=== PATIENT | male | born 1960 | race Caucasian/White ===

== ENCOUNTER → 2016-10-08 | Outpatient (CLI) | payer BC, OTHER ==
--- NOTE | 2016-10-08 16:08 | CR ---
EXAMINATION: Two-view chest (PA and Lateral views). HISTORY: Cough. FINDINGS: The trachea is midline. The cardiomediastinal silhouette is within normal limits. No pulmonary infil trates, effusions or pneumothorax. Old right-sided rib fractures noted. IMPRESSION: No acute cardiopulmonary process.
== END | disposition home or self-care (01) ==
LOC: MW.CHFP 15:23
PROVIDERS: ATTEND Nurse Practitioner Family
DX: R05 Cough (principal)
CPT/HCPCS: 71020; 71020-26

== ENCOUNTER 2019-01-21 16:33 | Emergency (ER) | payer BC, OTHER ==
--- NOTE | 2019-01-21 17:38 | EDM.PDOC ---
ED HPI GENERAL MEDICAL PROBLEM - General Chief Complaint: Skin Complaint Stated Complaint: CELLULITIS LEFT LEG Time Seen by Provider: 01/21/19 17:38 Source of Information: Reports: Patient - History of Present Illness INITIAL COMMENTS - FREE TEXT/NARRATIVE: HISTORY AND PHYSICAL: History of present illness: [Patient presents with left lower extremity cellulitis which began this morning palms sized on the anterior melendez, he has a history of cellulitis he states he is a prediabetic on metformin his refused lab today he does not check his blood glucose is only agreeable to treatment with oral antibiotic No fever nausea vomiting chills sweats ] Review of systems: As per history of present illness and below otherwise all systems reviewed and negative. Past medical history: As per history of present illness and as reviewed below otherwise noncontributory. Surgical history: As per history of present illness and as reviewed below otherwise noncontributory. Social history: No reported history of drug or alcohol abuse. Family history: As per history of present illness and as reviewed below otherwise noncontributory. Physical exam: HEENT: Atraumatic, normocephalic, pupils reactive, negative for conjunctival pallor or scleral icterus, mucous membranes moist, throat clear, neck supple, nontender, trachea midline. Lungs: Clear to auscultation, breath sounds equal bilaterally, chest nontender. Heart: S1S2, regular, negative for clicks, rubs, or JVD. Abdomen: Soft, nondistended, nontender. Negative for masses or hepatosplenomegaly. Negative for costovertebral tenderness. Pelvis: Stable nontender. Genitourinary: Deferred. Rectal: Deferred. Extremities: Atraumatic, negative for cords or calf pain. Neurovascular unremarkable. Neuro: Awake, alert, oriented. Cranial nerves II through XII unremarkable. Cerebellum unremarkable. Motor and sensory unremarkable throughout. Exam nonfocal. Skin as per history of present illness otherwise unremarkable Diagnostics: [Patient refused lab ] Therapeutics: [Bactrim double strength #20 no refill Patient advised to return if symptoms persist or worsen despite treatment ] Impression: [ left lower extremity cellulitis Chronic history of baseline] Definitive disposition and diagnosis as appropriate pending reevaluation and review of above. Left Lower Leg Pain Score (Numeric/FACES): 5 - Related Data Allergies Allergy/AdvReac Type Severity Reaction Status Date / Time No Known Allergies Allergy Verified 01/21/19 16:49 Home Meds: Home Meds Budesonide/Formoterol [Symbicort 160-4.5 MCG] 1 - 2 puff INH ASDIRECTED [History] Furosemide 40 mg PO DAILY 01/21/19 [History] atorvaSTATin Calcium [Atorvastatin Calcium] 40 mg PO DAILY 01/21/19 [History] metFORMIN HCl [Metformin HCl] 500 mg PO BID 01/21/19 [History] Past Medical History - Past Health History Medical/Surgical History: Denies Medical/Surgical History Cardiovascular History: Reports: High Cholesterol, Other (See Below) Other Cardiovascular History: edema Respiratory History: Reports: COPD Endocrine/Metabolic History: Reports: Diabetes, Type II - Infectious Disease History Infectious Disease History: Reports: Chicken Pox, Measles, Mumps Social & Family History - Family History Family Medical History: Noncontributory - Tobacco Use Smoking Status *Q: Current Every Day Smoker Years of Tobacco use: 40 Packs/Tins Daily: 1 - Recreational Drug Use Recreational Drug Use: No ED ROS GENERAL - Review of Systems Review Of Systems: See Below ED EXAM, SKIN/RASH Exam: See Below Course - Vital Signs Last Recorded V/S: Last Vital Signs Temp 98.7 F 01/21/19 16:48 Pulse 96 01/21/19 16:48 Resp 18 01/21/19 16:48 BP 143/86 H 01/21/19 16:48 Pulse Ox 93 L 01/21/19 16:48 Departure - Departure Time of Disposition: 17:41 Disposition: Home, Self-Care 01 Condition: Good Clinical Impression: Cellulitis - Discharge Information Referrals: PCP,None [Primary Care Provider] - Forms: ED Department Discharge Additional Instructions: Medication as prescribed Return if symptoms persist or worsen despite treatment Follow-up with primary care in 2 weeks as scheduled The following information is given to patients seen in the emergency department who are being discharged to home. This information is to outline your options for follow-up care. We provide all patients seen in our emergency department with a follow-up referral. The need for follow-up, as well as the timing and circumstances, are variable depending upon the specifics of your emergency department visit. If you don't have a primary care physician on staff, we will provide you with a referral. We always advise you to contact your personal physician following an emergency department visit to inform them of the circumstance of the visit and for follow-up with them and/or the need for any referrals to a consulting specialist. The emergency department will also refer you to a specialist when appropriate. This referral assures that you have the opportunity for follow-up care with a specialist. All of these measure are taken in an effort to provide you with optimal care, which includes your follow-up. Under all circumstances we always encourage you to contact your private physician who remains a resource for coordinating your care. When calling for follow-up care, please make the office aware that this follow-up is from your recent emergency room visit. If for any reason you are refused follow-up, please contact the [facility] emergency department at and asked to speak to the emergency department charge nurse.
== END 2019-01-21 17:49 | disposition home or self-care (01) ==
LOC: MW.ED 16:33
DX: L03.116 Cellulitis of left lower limb (principal); E11.9 Type 2 diabetes mellitus without complications; J44.9 Chronic obstructive pulmonary disease, unspecified; E78.00 Pure hypercholesterolemia, unspecified; F17.210 Nicotine dependence, cigarettes, uncomplicated; Z79.84 Long term (current) use of oral hypoglycemic drugs; Z79.899 Other long term (current) drug therapy
CPT/HCPCS: 99283

== ENCOUNTER 2020-06-17 06:32 | Day surgery (SDC) | payer BC, OTHER ==
[~2020-06-17 06:32] MED LIST: Lactated Ringers 1,000 ML IV SCH
[2020-06-17] MEDS ORDERED: Propofol 200 MG/20 ML SDV ONE (07:07)
[2020-06-17] MEDS ORDERED: Lidocaine 2% 5 ML SDV ONE (07:07)
[2020-06-17] MEDS ORDERED: Midazolam 1 MG/ML 2 ML SDV ONE (07:07)
[2020-06-17] MEDS ORDERED: fentaNYL 100 MCG/2 ML SDV ONE (07:07)
--- NOTE | 2020-06-17 07:22 | PCM.PREANE ---
Preanesthetic Assessment - Anesthesia/Transfusion/Family Hx Anesthesia History: Prior Anesthesia Without Reaction Family History of Anesthesia Reaction: No Transfusion History: No Prior Transfusion(s) Intubation History: Unknown - Review of Systems General: No Symptoms Pulmonary: No Symptoms Cardiovascular: No Symptoms Gastrointestinal: No Symptoms, Other (screening, last one 10 years ago was normal) Neurological: No Symptoms Other: Reports: None - Physical Assessment Vital Signs: Last Vital Signs Temp 36.5 C 06/17/20 07:09 Pulse 65 06/17/20 07:09 Resp 18 06/17/20 07:09 BP 139/75 06/17/20 07:09 Pulse Ox 93 L 06/17/20 07:09 Height: 5 ft 8 in Weight: 144.242 kg ASA Class: 3 Mental Status: Alert & Oriented x3 Airway Class: Mallampati = 2 Dentition: Reports: Normal Dentition Thyro-Mental Finger Breadths: 2 Mouth Opening Finger Breadths: 3 ROM/Head Extension: Limited/Partial Lungs: Clear to Auscultation, Normal Respiratory Effort Cardiovascular: Regular Rate, Regular Rhythm - Allergies Allergies/Adverse Reactions: Allergies Allergy/AdvReac Type Severity Reaction Status Date / Time No Known Allergies Allergy Verified 06/17/20 07:16 - Blood Blood Available: No - Anesthesia Plan Pre-Op Medication Ordered: None - Acknowledgements Anesthesia Type Planned: MAC Pt an Appropriate Candidate for the Planned Anesthesia: Yes Alternatives and Risks of Anesthesia Discussed w Pt/Guardian: Yes Pt/Guardian Understands and Agrees with Anesthesia Plan: Yes PreAnesthesia Questionnaire - Past Health History Medical/Surgical History: Denies Medical/Surgical History HEENT History: Reports: None Cardiovascular History: Reports: High Cholesterol, Other (See Below) Other Cardiovascular History: edema Respiratory History: Reports: COPD (moderate), Sleep Apnea, SOB Other Respiratory History: uses CPAP Gastrointestinal History: Reports: None Genitourinary History: Reports: BPH Musculoskeletal History: Reports: Arthritis Neurological History: Reports: None Psychiatric History: Reports: None Endocrine/Metabolic History: Reports: Diabetes, Type II (glucose level 103 this morning), Obesity/BMI 30+ (BMI 48.8) Hematologic History: Reports: None Immunologic History: Reports: None Oncologic (Cancer) History: Reports: None Dermatologic History: Reports: None - Infectious Disease History Infectious Disease History: Reports: Chicken Pox, Measles, Mumps - Past Surgical History Head Surgeries/Procedures: Reports: None HEENT Surgical History: Reports: None Cardiovascular Surgical History: Reports: None Respiratory Surgical History: Reports: None GI Surgical History: Reports: Appendectomy, Colonoscopy, Hernia Repair/Other Male Surgical History: Reports: None Endocrine Surgical History: Reports: None Neurological Surgical History: Reports: None Musculoskeletal Surgical History: Reports: None Oncologic Surgical History: Reports: None Dermatological Surgical History: Reports: None - SUBSTANCE USE Tobacco Use Status *Q: Current Every Day Tobacco User (down to 1/2 ppd) Tobacco Use Within Last Twelve Months: Cigarettes - HOME MEDS Home Medications: Home Meds Budesonide/Formoterol [Symbicort 160-4.5 MCG] 1 puff INH BID 01/21/19 [History] Furosemide 20 mg PO DAILY 01/21/19 [History] atorvaSTATin Calcium [Atorvastatin Calcium] 40 mg PO BEDTIME 01/21/19 [History] metFORMIN HCl [Metformin HCl] 500 mg PO BID 01/21/19 [History] Meloxicam 15 mg PO DAILY PRN 06/13/20 [History] Tamsulosin HCl [Flomax] 0.4 mg PO BEDTIME 06/13/20 [History] buPROPion HCL [Bupropion HCl Sr] 150 mg PO BID 06/13/20 [History] - CURRENT (IN HOUSE) MEDS Current Meds: Current Medications Lactated Ringer's (Ringers, Lactated) 1,000 mls @ 125 mls/hr IV ASDIRECTED [facility] Last Admin: 06/17/20 07:09 Dose: 125 mls/hr Documented by: Discontinued Medications Fentanyl (Sublimaze) Confirm Administered Dose 100 mcg .ROUTE .STK-MED ONE Stop: 06/17/20 07:08 Lidocaine (Xylocaine-Mpf 2%) Confirm Administered Dose 5 ml .ROUTE .STK-MED ONE Stop: 06/17/20 07:08 Midazolam HCl (Versed 1 Mg/Ml) Confirm Administered Dose 2 mg .ROUTE .STK-MED ONE Stop: 06/17/20 07:08 Propofol (Diprivan 20 Ml) Confirm Administered Dose 400 mg .ROUTE .STK-MED ONE Stop: 06/17/20 07:08
--- NOTE | 2020-06-17 08:21 | PCM.OPNOTE ---
- General Post-Op/Procedure Note Date of Surgery/Procedure: 06/17/20 Operative Procedure(s): Colonoscopy with cold descending colon polypectomy Pre Op Diagnosis: Desire for colorectal cancer screening Post-Op Diagnosis: Descending colon polyp. Sigmoid diverticulosis. Anesthesia Technique: MAC (ASA III) Primary Surgeon: Pilo Prieto Condition: Good Free Text/Narrative:: DICTATION [id number] CPT CODE 20333
[2020-06-17] MEDS ORDERED: Lactated Ringers 1,000 ML IV SCH (08:30)
--- NOTE | 2020-06-17 08:43 | PCM.POSTAN ---
POST ANESTHESIA ASSESSMENT - MENTAL STATUS Mental Status: Alert, Oriented - VITAL SIGNS Vital Signs: Last Vital Signs Temp 36.8 C 06/17/20 08:20 Pulse 58 L 06/17/20 08:39 Resp 17 06/17/20 08:39 BP 129/63 06/17/20 08:39 Pulse Ox 93 L 06/17/20 08:39 - RESPIRATORY Respiratory Status: Respiratory Rate WNL, Airway Patent, O2 Saturation Stable - CARDIOVASCULAR CV Status: Pulse Rate WNL, Blood Pressure Stable - GASTROINTESTINAL GI Status: No Symptoms - PAIN Pain Score: 0 - POST OP HYDRATION Hydration Status: Adequate & Stable - OBSERVATIONS Free Text/Narrative:: No anesthesia problems
--- NOTE | 2020-06-17 08:56 | PCM48HPAN ---
Post Anesthesia Note - EVALUATION WITHIN 48HRS OF ANESTHETIC Vital Signs in Normal Range: Yes Patient Participated in Evaluation: Yes Respiratory Function Stable: Yes Airway Patent: Yes Cardiovascular Function Stable: Yes Hydration Status Stable: Yes Pain Control Satisfactory: Yes Nausea and Vomiting Control Satisfactory: Yes Mental Status Recovered: Yes Vital Signs: Last Vital Signs Temp 36.8 C 06/17/20 08:20 Pulse 58 L 06/17/20 08:39 Resp 17 06/17/20 08:39 BP 129/63 06/17/20 08:39 Pulse Ox 93 L 06/17/20 08:39 - COMMENTS/OBSERVATIONS Free Text/Narrative:: No anesthesia problems
--- NOTE | 2020-06-17 12:10 | OR ---
SURGEON: Pilo Prieto M.D. DATE OF PROCEDURE: 06/17/2020 OPERATION PERFORMED: Colonoscopy with cold descending colon polypectomy. PRIMARY SURGEON: Pilo Prieto M.D. ANESTHESIA: MAC. ASA CLASSIFICATION: 3. PREOPERATIVE DIAGNOSIS: Desire for colorectal cancer screening. POSTOPERATIVE DIAGNOSES: 1. Descending colon polyp. 2. Sigmoid diverticulosis. DESCRIPTION OF PROCEDURE: The patient was taken to the endoscopy room and positioned on the endoscopy table in the left lateral decubitus position. Time-out was called for appropriate identification of the patient and procedure. Monitored anesthesia care was provided. The colonoscope was inserted into the rectum and advanced with minimal difficulty to the cecum. The cecum was identified by internal landmarks and external pressure. The colonoscope was retroflexed in the cecum to visualize the ascending colon from below. The colonoscope was then straightened and slowly withdrawn. The cecum, ascending colon, hepatic flexure, transverse colon, and splenic flexure showed no tumors, polyps, diverticula, or angiodysplastic changes. One small polyp was encountered in the descending colon and removed with a cold biopsy forceps. The sigmoid colon demonstrates moderate diverticular disease. No stricture, spasm, or bleeding was noted. No polyps were encountered in the sigmoid colon. The colonoscope was withdrawn to the rectum and retroflexed to visualize the anal orifice from above. Again, no tumors or polyps were seen and there were no acute hemorrhoidal changes. The colonoscope was then straightened, the rectum aspirated, and the colonoscope removed. The patient tolerated the procedure well and was taken to recovery room in stable condition. BENNETT / KELIN /[id number]
== END 2020-06-17 09:03 | disposition home or self-care (01) ==
LOC: MW.SDS 06:32
PROVIDERS: ATTEND Surgery
DX: Z12.11 Encounter for screening for malignant neoplasm of colon (principal); D12.4 Benign neoplasm of descending colon; K57.30 Diverticulosis of large intestine without perforation or abscess without bleeding; E78.00 Pure hypercholesterolemia, unspecified; J44.9 Chronic obstructive pulmonary disease, unspecified; N40.0 Benign prostatic hyperplasia without lower urinary tract symptoms; E11.9 Type 2 diabetes mellitus without complications; G47.30 Sleep apnea, unspecified; F17.210 Nicotine dependence, cigarettes, uncomplicated; Z79.899 Other long term (current) drug therapy; Z90.49 Acquired absence of other specified parts of digestive tract; Z79.84 Long term (current) use of oral hypoglycemic drugs
CPT/HCPCS: 45380; 82962; J2001; J2250; J2704; J3010; J7120; 88305

== ENCOUNTER 2023-09-08 05:12 | Emergency (ER) | payer BC, OTHER ==
[2023-09-08 05:46] LABS: BASOPHILS ABSOLUTE AUTO 0.05 K/uL (0.00-0.20); BASOPHILS PERCENT AUTO 0.4 % (0.0-1.0); EOSINOPHILS ABSOLUTE AUTO 0.09 K/uL (0.00-0.45); EOSINOPHILS PERCENT AUTO 0.7 % (0.0-6.0); HEMATOCRIT 42.8 % (42.0-52.0); HEMOGLOBIN 14.5 g/dL (14.0-18.0); IMMATURE GRAN ABSOLUTE AUTO 0.04 K/uL (0.00-0.05); IMMATURE GRAN PERCENT AUTO 0.3 % (0.0-0.4); LYMPHOCYTES ABSOLUTE AUTO 1.35 K/uL (1.00-4.80); LYMPHOCYTES PERCENT AUTO 10.7 % (24.0-44.0); MEAN CORPUSCULAR HEMOGLOBIN 30.3 pg (28.0-32.0); MEAN CORPUSCULAR HGB CONC 33.9 g/dL (32.0-36.0); MEAN CORPUSCULAR VOLUME 89.5 fL (83.0-99.0); MEAN PLATELET VOLUME 8.7 fL (9.4-12.4); MONOCYTES ABSOLUTE AUTO 1.09 K/uL (0.00-0.80); MONOCYTES PERCENT AUTO 8.7 % (0.0-8.0); NEUTROPHILS ABSOLUTE AUTO 9.97 K/uL (1.80-7.70); NEUTROPHILS PERCENT AUTO 79.2 % (41.0-71.0); PLATELET COUNT,PLT 254 K/uL (150-400); RED BLOOD CELL COUNT 4.78 M/uL (4.52-5.90); WHITE BLOOD CELL COUNT,WBC 12.59 K/uL (3.9-11.3)
[2023-09-08 06:11] LABS: A/G RATIO 0.7 (0.9-1.6); ALBUMIN 3.2 g/dL (3.4-5.0); BILIRUBIN TOTAL 0.7 mg/dL (0.2-1.0); C-REACTIVE PROTEIN 6.36 mg/dL (<0.3); CALCIUM 8.7 mg/dL (8.5-10.1); CARBON DIOXIDE,CO2 27.7 mmol/L (21.0-32.0); CREATININE 0.9 mg/dL (0.8-1.3); EST CRCL DRUG DOSING (CG) 80.22 mL/min; POTASSIUM,K 4.6 mmol/L (3.5-5.1); PROTEIN TOTAL,TP 7.6 g/dL (6.4-8.2)
[2023-09-08] MEDS: Ketorolac 30 MG/ML SDV IVPUSH ONE (06:14)
== END 2023-09-08 08:20 | disposition home or self-care (01) ==
LOC: MW.ED 05:12
DX: M79.672 Pain in left foot (principal); E78.00 Pure hypercholesterolemia, unspecified; E66.9 Obesity, unspecified; E11.9 Type 2 diabetes mellitus without complications; Z79.84 Long term (current) use of oral hypoglycemic drugs; Z79.899 Other long term (current) drug therapy; Z90.49 Acquired absence of other specified parts of digestive tract; Z75.8 Other problems related to medical facilities and other health care; Z68.42 Body mass index [BMI] 45.0-49.9, adult
CPT/HCPCS: 36415; 73620; 80053; 85025; 86140; 93970; 96374; 99284; J1885

== ENCOUNTER 2023-10-18 09:21 | Emergency (ER) | payer BC, OTHER ==
[2023-10-18] MEDS: Ondansetron 4 MG/2 ML SDV IVPUSH ONE ×2 (10:37→15:17)
[2023-10-18] MEDS: Morphine 4 MG/ML Syringe IVPUSH ONE ×3 (10:37→15:17)
[2023-10-18 11:32] LABS: BASOPHILS ABSOLUTE AUTO 0.07 K/uL (0.00-0.20); BASOPHILS PERCENT AUTO 0.4 % (0.0-1.0); EOSINOPHILS ABSOLUTE AUTO 0.06 K/uL (0.00-0.45); EOSINOPHILS PERCENT AUTO 0.4 % (0.0-6.0); HEMOGLOBIN 13.8 g/dL (14.0-18.0); IMMATURE GRAN ABSOLUTE AUTO 0.05 K/uL (0.00-0.05); IMMATURE GRAN PERCENT AUTO 0.3 % (0.0-0.4); LYMPHOCYTES ABSOLUTE AUTO 1.76 K/uL (1.00-4.80); LYMPHOCYTES PERCENT AUTO 11.3 % (24.0-44.0); MEAN CORPUSCULAR HEMOGLOBIN 30.3 pg (28.0-32.0); MEAN CORPUSCULAR HGB CONC 33.7 g/dL (32.0-36.0); MEAN CORPUSCULAR VOLUME 89.9 fL (83.0-99.0); MEAN PLATELET VOLUME 8.8 fL (9.4-12.4); MONOCYTES ABSOLUTE AUTO 0.52 K/uL (0.00-0.80); MONOCYTES PERCENT AUTO 3.3 % (0.0-8.0); NEUTROPHILS PERCENT AUTO 84.3 % (41.0-71.0); PLATELET COUNT,PLT 261 K/uL (150-400); RED BLOOD CELL COUNT 4.56 M/uL (4.52-5.90); WHITE BLOOD CELL COUNT,WBC 15.56 K/uL (3.9-11.3)
[2023-10-18 11:53] LABS: A/G RATIO 1.1 (0.9-1.6); ALBUMIN 3.7 g/dL (3.4-5.0); BILIRUBIN TOTAL 0.6 mg/dL (0.2-1.0); CALCIUM 8.6 mg/dL (8.5-10.1); CARBON DIOXIDE,CO2 22.5 mmol/L (21.0-32.0); EST CRCL DRUG DOSING (CG) 72.2 mL/min; POTASSIUM,K 4.6 mmol/L (3.5-5.1); PROTEIN TOTAL,TP 7.1 g/dL (6.4-8.2)
[2023-10-18] MEDS: Ondansetron 4 MG/2 ML SDV ONE (15:17)
== END 2023-10-18 15:30 ==
LOC: MW.ED 09:21
DX: N40.0 Benign prostatic hyperplasia without lower urinary tract symptoms (principal); R33.8 Other retention of urine; R31.9 Hematuria, unspecified; E78.00 Pure hypercholesterolemia, unspecified; J44.9 Chronic obstructive pulmonary disease, unspecified; E11.9 Type 2 diabetes mellitus without complications; Z79.899 Other long term (current) drug therapy; Z79.84 Long term (current) use of oral hypoglycemic drugs; Z75.8 Other problems related to medical facilities and other health care
CPT/HCPCS: 36415; 80053; 85025; 96374; 96375; 96376; 99284; J2270; J2405; J3360; 99285

== ENCOUNTER 2024-08-09 16:50 | Emergency (ER) | payer BC ==
[2024-08-09 17:21] LABS: BASOPHILS ABSOLUTE AUTO 0.07 K/uL (0.00-0.20); BASOPHILS PERCENT AUTO 0.4 % (0.0-1.0); EOSINOPHILS ABSOLUTE AUTO 0.31 K/uL (0.00-0.45); EOSINOPHILS PERCENT AUTO 1.9 % (0.0-6.0); HEMATOCRIT 41.4 % (42.0-52.0); HEMOGLOBIN 13.6 g/dL (14.0-18.0); IMMATURE GRAN ABSOLUTE AUTO 0.05 K/uL (0.00-0.05); IMMATURE GRAN PERCENT AUTO 0.3 % (0.0-0.4); LYMPHOCYTES PERCENT AUTO 16.3 % (24.0-44.0); MEAN CORPUSCULAR HEMOGLOBIN 28.8 pg (28.0-32.0); MEAN CORPUSCULAR HGB CONC 32.9 g/dL (32.0-36.0); MEAN CORPUSCULAR VOLUME 87.7 fL (83.0-99.0); MEAN PLATELET VOLUME 8.7 fL (9.4-12.4); MONOCYTES ABSOLUTE AUTO 1.14 K/uL (0.00-0.80); MONOCYTES PERCENT AUTO 7.1 % (0.0-8.0); NEUTROPHILS ABSOLUTE AUTO 11.78 K/uL (1.80-7.70); PLATELET COUNT,PLT 348 K/uL (150-400); RED BLOOD CELL COUNT 4.72 M/uL (4.52-5.90); WHITE BLOOD CELL COUNT,WBC 15.95 K/uL (3.9-11.3)
[2024-08-09] MEDS: predniSONE 20 MG Tab PO ONE (17:21)
[2024-08-09] MEDS: Albuterol/Ipratropium 3.0-0.5 MG/3 ML Neb Soln NEB ONE (17:21)
[2024-08-09 17:46] LABS: A/G RATIO 0.8 (0.9-1.6); ALANINE AMINOTRANSFERASE,ALT 71 IU/L (14-63); ALBUMIN 3.2 g/dL (3.4-5.0); ALKALINE PHOSPHATASE 97 U/L (46-116); ASPARTATE AMNIOTRANSFERASE,AST 23 IU/L (15-37); BILIRUBIN TOTAL 0.6 mg/dL (0.2-1.0); BLOOD UREA NITROGEN,BUN 22 mg/dL (7.0-18.0); CALCIUM 8.8 mg/dL (8.5-10.1); CARBON DIOXIDE,CO2 27.3 mmol/L (21.0-32.0); CHLORIDE,CL 102 mmol/L (98-107); EST CRCL DRUG DOSING (CG) 74.63 mL/min; ESTIMATED GFR 84 mL/min (>60); GLUCOSE RANDOM 118 mg/dL (74-106); POTASSIUM,K 3.9 mmol/L (3.5-5.1); PROTEIN TOTAL,TP 7.2 g/dL (6.4-8.2); SODIUM,NA 143 mmol/L (136-148)
[2024-08-09] MEDS: Cefuroxime 250 MG Tab PO ONE (19:01)
== END 2024-08-09 19:03 | disposition home or self-care (01) ==
LOC: MW.ED 16:50
DX: J18.9 Pneumonia, unspecified organism (principal); E78.00 Pure hypercholesterolemia, unspecified; J44.9 Chronic obstructive pulmonary disease, unspecified; E11.9 Type 2 diabetes mellitus without complications; E66.9 Obesity, unspecified; Z90.49 Acquired absence of other specified parts of digestive tract; Z79.899 Other long term (current) drug therapy; Z79.84 Long term (current) use of oral hypoglycemic drugs; Z68.41 Body mass index [BMI] 40.0-44.9, adult
CPT/HCPCS: 36415; 71045; 80053; 84484; 85025; 93005; 99285; A9270; J7620